=== PATIENT | female | born 1980 | race Caucasian/White ===

== ENCOUNTER 2018-11-01 01:35 | Emergency (ER) | payer BC ==
[2018-11-01 04:31] LABS: ABSOLUTE BASOPHILS # (AUTO) 0.1 10^3/uL (0.0-0.2); ABSOLUTE EOSINOPHILS # (AUTO) 0.2 10^3/uL (0.0-0.6); ABSOLUTE MONOCYTES (AUTO) 0.7 10^3/uL (0.1-1.4); ABSOLUTE NEUT (AUTO) 6.1 10^3/uL (1.7-8.2); BASOPHILS % (AUTO) 0.7 % (0-2); EOSINOPHILS % (AUTO) 1.8 % (0-6); HEMATOCRIT 29.1 % (36.0-47.0); HEMOGLOBIN 8.7 g/dL (12.0-15.5); LYMPHOCYTES % (AUTO) 35.9 % (13-45); MEAN CORPUSCULAR HEMOGLOBIN 16.7 pg (27.0-33.4); MEAN CORPUSCULAR HGB CONC 29.8 g/dL (32.0-36.0); MONOCYTES % (AUTO) 6.4 % (3-13); PLATELET COUNT 392 10^3/uL (150-450); RED BLOOD COUNT 5.19 10^6/uL (3.72-5.28); RED CELL DISTRIBUTION WIDTH 20.4 % (11.5-14.0); SEGMENTED NEUTROPHILS % (AUTO) 55.2 % (42-78); TOTAL CELLS COUNTED % (AUTO) 100 %
[2018-11-01 04:43] LABS: ALBUMIN 4.2 g/dL (3.5-5.0); ALKALINE PHOSPHATASE 110 U/L (38-126); ANION GAP 10 (5-19); ASPARTATE AMINO TRANSFERASE 16 U/L (14-36); BILIRUBIN,DIRECT 0.2 mg/dL (0.0-0.4); BILIRUBIN,TOTAL 0.3 mg/dL (0.2-1.3); BLOOD UREA NITROGEN 13 mg/dL (7-20); CALCIUM 9.2 mg/dL (8.4-10.2); CARBON DIOXIDE 23 mmol/L (22-30); CHLORIDE 105 mmol/L (98-107); GLUCOSE 93 mg/dL (75-110); POTASSIUM 4.1 mmol/L (3.6-5.0); TOTAL PROTEIN 7.6 g/dL (6.3-8.2)
[2018-11-01 05:04] LABS: ANISOCYTOSIS 2+; HYPOCHROMASIA 2+; OVALOCYTES 1+
[2018-11-01 05:05] LABS: MEAN CORPUSCULAR VOLUME 56 fl (80-97); PLATELET COMMENT ADEQUATE
[2018-11-01] MEDS ORDERED: FENTANYL CITRATE INJ/PF 100 MCG/2 ML AMPUL IV ONE (05:26)
[2018-11-01] MEDS ORDERED: NORMAL SALINE 1000 ML 1,000 ML IV ONE (05:26)
[2018-11-01 05:38] VITALS: BP 139/86
[2018-11-01 05:40] LABS: APPEARANCE,URINE SLIGHTLY-CLOUDY; BILIRUBIN,URINE NEGATIVE (NEGATIVE); COLOR,URINE YELLOW; GLUCOSE, URINE NEGATIVE (NEGATIVE); KETONES,URINE 20 mg/dL (NEGATIVE); LEUKOCYTE ESTERASE,URINE TRACE (NEGATIVE); NITRITE,URINE NEGATIVE (NEGATIVE); PROTEIN,URINE NEGATIVE (NEGATIVE); URINE SPECIFIC GRAVITY 1.023; UROBILINOGEN,URINE NEGATIVE mg/dL (<2.0)
[2018-11-01] MEDS ORDERED: ONDANSETRON HCL INJ/PF 4 MG/2 ML SDV IV ONE (05:46)
--- NOTE | 2018-11-01 07:02 | RADIOLOGY REPORT (SQ) ---
EXAM DESCRIPTION: US ABDOMEN LIMITED COMPLETED DATE/TME: 11/01/2018 05:20 CLINICAL HISTORY: 38 years Female, RUQ pain Comparison: None. LIMITATIONS: Body habitus. FINDINGS: Cholelithiasis, negative sonographic Foley's test, mild hepatic steatosis, a 0.3-cm diameter common bile duct, no intrahepatic ductal dilation, hepatopetal patent flow of the portal vein, 10-cm right kidney, partially obscured mildly echogenic pancreas, visualized vasculature/abdominal aorta, and no significant ascites appear otherwise unremarkable. IMPRESSION: No acute findings. Cholelithiasis. Mild hepatic steatosis.
--- NOTE | 2018-11-01 07:32 | ER Document Report ---
ED General - General Chief Complaint: Abdominal Pain Stated Complaint: ABDOMINAL PAIN Time Seen by Provider: 11/01/18 05:18 Notes: Patient is a morbidly obese 38-year-old female presents to the emergency department for right upper quadrant abdominal pain. Patient's denying any vomiting or diarrhea but is admitting to generalized nausea. Patient's denying any fevers, dysuria, vaginal discharge. Patient states she does have a history of iron deficiency anemia. States she typically gets iron infusions. States that is been almost 4 years since her last iron infusion based on the fact that she recently moved here and recently regained her insurance. Patient's denying any dark stools, melena, hematemesis. Patient is denying any abnormal bruising. Patient states she knows she has gallstones, states she was diagnosed when she was but was unable to have her gallbladder removed based on the fact she was . TRAVEL OUTSIDE OF THE [place] IN LAST 30 DAYS: No - Related Data Allergies/Adverse Reactions: No Known Allergies Allergy (Verified 11/01/18 01:45) Past Medical History - General Information source: Patient - Social History Smoking Status: Unknown if Ever Smoked Family History: Reviewed & Not Pertinent Patient has suicidal ideation: No Patient has homicidal ideation: No Renal/ Medical History: Denies: Hx Peritoneal Dialysis Review of Systems - Review of Systems Constitutional: denies: Fever EENT: No symptoms reported Cardiovascular: No symptoms reported Respiratory: No symptoms reported Gastrointestinal: See HPI Genitourinary: See HPI Female Genitourinary: See HPI Musculoskeletal: No symptoms reported Skin: No symptoms reported Hematologic/Lymphatic: See HPI Neurological/Psychological: No symptoms reported Physical Exam - Vital signs Vitals: Temp Pulse Resp BP Pulse Ox 98.5 F 94 20 151/101 H 97 11/01/18 01:41 11/01/18 01:41 11/01/18 01:41 11/01/18 01:41 11/01/18 01:41 - Notes Notes: GENERAL: Alert, interacts well. No acute distress. HEAD: Normocephalic, atraumatic. EYES: Pupils equal, round, and reactive to light. Extraocular movements intact. ENT: Oral mucosa moist, tongue midline. NECK: Full range of motion. Supple. Trachea midline. LUNGS: Clear to auscultation bilaterally, no wheezes, rales, or rhonchi. No respiratory distress. HEART: Regular rate and rhythm. No murmur ABDOMEN: Soft, generalized right upper quadrant abdominal pain noted. Non- distended. Bowel sounds present in all 4 quadrants. No McBurney's point tenderness. EXTREMITIES: Moves all 4 extremities spontaneously. No edema, normal radial and dorsalis pedis pulses bilaterally. No cyanosis. BACK: no cervical, thoracic, lumbar midline tenderness. No saddle anesthesia, normal distal neurovascular exam. NEUROLOGICAL: Alert and oriented x3. Normal speech. cranial nerves II through XII grossly intact PSYCH: Normal affect, normal mood. SKIN: Warm, dry, normal turgor. No rashes or lesions noted. Course - Re-evaluation Re-evalutation: Laboratory 11/01/18 11/01/18 11/01/18 04:05 04:05 05:28 WBC 11.0 H RBC 5.19 Hgb 8.7 L Hct 29.1 L MCV 56 L MCH 16.7 L MCHC 29.8 L RDW 20.4 H Plt Count 392 Seg Neutrophils % 55.2 Lymphocytes % 35.9 Monocytes % 6.4 Eosinophils % 1.8 Basophils % 0.7 Absolute Neutrophils 6.1 Absolute Lymphocytes 4.0 Absolute Monocytes 0.7 Absolute Eosinophils 0.2 Absolute Basophils 0.1 Platelet Comment ADEQUATE Hypochromasia 2+ Anisocytosis 2+ Microcytosis 4+ Ovalocytes 1+ Sodium 138.3 Potassium 4.1 Chloride 105 Carbon Dioxide 23 Anion Gap 10 BUN 13 Creatinine 0.76 Est GFR ( Amer) > 60 Est GFR (Non-Af Amer) > 60 Glucose 93 Calcium 9.2 Total Bilirubin 0.3 Direct Bilirubin 0.2 Neonat Total Bilirubin Not Reportable Neonat Direct Bilirubin Not Reportable Neonat Indirect Bili Not Reportable AST 16 ALT 11 Alkaline Phosphatase 110 Total Protein 7.6 Albumin 4.2 Lipase 82.3 Urine Color YELLOW Urine Appearance SLIGHTLY-CLOUDY Urine pH 5.0 Ur Specific [place] 1.023 Urine Protein NEGATIVE Urine Glucose (UA) NEGATIVE Urine Ketones 20 H Urine Blood NEGATIVE Urine Nitrite NEGATIVE Urine Bilirubin NEGATIVE Urine Urobilinogen NEGATIVE Ur Leukocyte Esterase TRACE H Urine WBC (Auto) 4 Urine RBC (Auto) 2 Squamous Epi Cells Auto 2 Urine Mucus (Auto) RARE Urine Ascorbic Acid NEGATIVE POC Stool Occult Blood 11/01/18 05:40 WBC RBC Hgb Hct MCV MCH MCHC RDW Plt Count Seg Neutrophils % Lymphocytes % Monocytes % Eosinophils % Basophils % Absolute Neutrophils Absolute Lymphocytes Absolute Monocytes Absolute Eosinophils Absolute Basophils Platelet Comment Hypochromasia Anisocytosis Microcytosis Ovalocytes Sodium Potassium Chloride Carbon Dioxide Anion Gap BUN Creatinine Est GFR ( Amer) Est GFR (Non-Af Amer) Glucose Calcium Total Bilirubin Direct Bilirubin Neonat Total Bilirubin Neonat Direct Bilirubin Neonat Indirect Bili AST ALT Alkaline Phosphatase Total Protein Albumin Lipase Urine Color Urine Appearance Urine pH Ur Specific [place] Urine Protein Urine Glucose (UA) Urine Ketones Urine Blood Urine Nitrite Urine Bilirubin Urine Urobilinogen Ur Leukocyte Esterase Urine WBC (Auto) Urine RBC (Auto) Squamous Epi Cells Auto Urine Mucus (Auto) Urine Ascorbic Acid POC Stool Occult Blood NEGATIVE Abdomen Ultrasound 11/01/18 05:20 IMPRESSION: No acute findings. Cholelithiasis. Mild hepatic steatosis. Patient's ultrasound shows cholelithiasis with no signs of cholecystitis. Patient's pain was controlled with initial dose of fentanyl in the emergency department. Patient has been able to p.o. fluids with no further nausea and no episodes of vomiting. Patient's hemoglobin and hematocrit were noted to be 8.7 and 29.1 respectively. MCV noted to be 56 consistent with her history of iron deficiency anemia. I have discussed this case with my attending Dr. Aguero who states based on labs Pt. can follow up outpt. for care of her H&H. Patient's guaiac stool was negative for blood. Rectal exam performed by myself, residential collections [facility], brown stool noted, no melena, no internal/external hemorrhoids, no anal fissures. I discussed with patient's need to follow-up with hematology now that she is reinsured. Also discussed following outpatient with surgery for elective removal of her gallbladder. Patient is also requesting for numbers for primary care providers. At this time will discharge with return precautions and follow-up recommendations. Verbal discharge instructions given a the bedside and opportunity for questions given. Medication warnings reviewed. Patient is in agreement with this plan and has verbalized understanding of return precautions and the need for primary care follow-up in the next 24-72 hours. This medical record was dictated with voice recognizing software. There may be grammatical, syntax errors that are unintended. - Vital Signs Vital signs: Temp Pulse Resp BP Pulse Ox 98.5 F 96 16 139/86 H 100 11/01/18 05:37 11/01/18 05:37 11/01/18 05:37 11/01/18 05:37 11/01/18 05:37 - Laboratory Result Diagrams: 11/01/18 04:05 11/01/18 04:05 Laboratory results interpreted by me: 11/01/18 11/01/18 04:05 05:28 WBC 11.0 H Hgb 8.7 L Hct 29.1 L MCV 56 L MCH 16.7 L MCHC 29.8 L RDW 20.4 H Urine Ketones 20 H Ur Leukocyte Esterase TRACE H Discharge - Discharge Clinical Impression: Cholelithiasis Qualifiers: Cholelithiasis location: other site Biliary obstruction: without biliary obstruction Qualified Code(s): K80.80 - Other cholelithiasis without obstruction Anemia Qualifiers: Anemia type: iron deficiency Iron deficiency anemia type: other iron deficiency Qualified Code(s): D50.8 - Other iron deficiency anemias Condition: Stable Disposition: HOME, SELF-CARE Instructions: Gallbladder Disease ([facility]), Anemia, Iron Deficiency ([facility]) Additional Instructions: As we discussed you have been seen and treated in the emergency department for your right upper quadrant abdominal pain. Your ultrasound shows you do have stones in your gallbladder but they are not infected. At this point time I will provide you with phone numbers for his surgeon to electively remove your gallbladder outpatient. Please return to the emergency room should your pain resurface, you have uncontrolled vomiting or develop a fever. While in the emergency department we have found that your hemoglobin is low. Is consistent with iron deficiency anemia. You should follow-up with hematology to get back on iron transfusions. Phone numbers for hematology in this area will also be provided. Please return to the emergency room should you develop shortness of breath, lightheadedness, dizziness, weakness or have any bleeding concerns. Prescriptions: Ondansetron [Zofran Odt 4 mg Tablet] 2 tab PO Q6 PRN #[id number] tab.rapdis PRN Reason: For Nausea/Vomiting Forms: Return to Work Referrals: KEEGAN MYLES MD [ACTIVE STAFF] - Follow up as needed JUANPABLO MORAN MD [ACTIVE STAFF] - Follow up as needed VENANCIO LE MD [ACTIVE STAFF] - Follow up as needed
[2018-11-01] MEDS ORDERED: HYDROCODONE/ACETAMINOPHEN 5-325 MG (6 TAB/ER DISP) PO PRN (07:54)
[2018-11-01 12:35] LABS: PATH REVIEW PATHOLOGIST REVIEWED
== END 2018-11-01 08:23 | disposition home or self-care (01) ==
LOC: ER 01:35
DX: K80.20 Calculus of gallbladder without cholecystitis without obstruction (principal); K76.0 Fatty (change of) liver, not elsewhere classified; D50.9 Iron deficiency anemia, unspecified; R10.11 Right upper quadrant pain; R11.0 Nausea
CPT/HCPCS: 99284; 96361; 96374; 96375; 36415; 83690; 85025; 80053; 81001; 76705; J3010; J2405; J7030

== ENCOUNTER → 2019-01-06 | Outpatient (CLI) | payer BC ==
--- NOTE | 2019-01-06 08:19 | WOMENS IMAGING REPORT ---
EXAM DESCRIPTION: U/S ABDOMEN LIMITED COMPLETED DATE/TIME: 01/06/2019 7:23 am REASON FOR STUDY: RUQ PAIN;R10.11 R10.11 RIGHT UPPER QUADRANT PAIN R10.13 EPIGASTRIC PAIN COMPARISON: None. TECHNIQUE: Dynamic and static grayscale images acquired of the abdomen and recorded on PACS. Additio nal selected color Doppler and spectral images recorded. Note: Exam does not meet criteria for a complete duplex/doppler study LIMITATIONS: Study limited due to the patient's large body habitus. FINDINGS: PANCREAS: Poorly seen secondary to acoustical interference from fat or from air in the bow el. No visualized masses. Duct normal caliber as seen. LIVER: Echotexture is coarse with increased echogenicity consistent with fatty infiltration. LIVER VASCULATURE: Normal directional flow of the main portal vein and hepatic veins. GALLBLADDER: Gallstones. Normal wall thickness. No pericholecystic fluid. ULTRASOUND-DETECTED STRICKLAND'S SIGN: Negative. INTRAHEPATIC DUCTS AND COMMON DUCT: CBD and intrahepatic ducts normal caliber. No filling defects. INFERIOR VENA CAVA: Normal flow. AORTA: No aneurysm. RIGHT KIDNEY: Normal size. Normal echogenicity. No solid or suspicious masses. No hydronephros is. No calcifications. LEFT KIDNEY: Normal size. Normal echogenicity. No solid or suspicious masses. No hydronephrosi s. No calcifications. SPLEEN:Normal size. No solid masses. PERITONEAL AND PLEURAL SPACES: No ascites or effusions. OTHER: No other significant finding. IMPRESSION: GALLSTONES. FATTY INFILTRATION OF THE LIVER. NO OTHER SIGNIFICANT FINDING IN THE VISUAL IZED ABDOMEN. TECHNICAL DOCUMENTATION: JOB ID: [id number] [employer]- All Rights Reserved Reading location - IP/workstation name: [email or web address]
== END ==
LOC: WI 09:04
PROVIDERS: ATTEND Surgery
DX: K80.80 Other cholelithiasis without obstruction (principal); R10.11 Right upper quadrant pain; R10.13 Epigastric pain; K76.0 Fatty (change of) liver, not elsewhere classified
CPT/HCPCS: 76705